=== PATIENT | male | born 1985 | race American Indian/Alaskan Native ===

== ENCOUNTER 2020-11-05 11:27 | Emergency (ER) | payer MEDICAID ==
[2020-11-05 14:58] LABS: Alanine Aminotransferase 122 units/L (7-56); Albumin 4.7 g/dL (3.9-5); Blood Urea Nitrogen 9 mg/dL (9-20); Calcium 9.5 mg/dL (8.4-10.2); Hemolysis Index 51
[2020-11-05 14:59] LABS: Basophils % (Auto) 0.2 % (0.0-1.8); Eosinophils # (Auto) 0.1 K/mm3 (0.0-0.4); Eosinophils % (Auto) 0.4 % (0.0-4.3); Hematocrit 39.6 % (35.5-45.6); Hemoglobin 13.7 gm/dl (11.8-15.2); Lymphocytes # (Auto) 1.6 K/mm3 (1.2-5.4); Lymphocytes % (Auto) 9.6 % (13.4-35.0); Mean Corpuscular HGB Conc 35 % (32-34); Mean Corpuscular Volume 85 fl (84-94); Monocytes # (Auto) 1.3 K/mm3 (0.0-0.8); Monocytes % (Auto) 7.9 % (0.0-7.3); Platelet Count 275 K/mm3 (140-440); Red Blood Count 4.69 M/mm3 (3.65-5.03); Red Cell Distribution Width 15.1 % (13.2-15.2)
[2020-11-05 15:04] LABS: BUN/Creatinine Ratio 23
--- NOTE | 2020-11-05 15:57 | Emergency Department Report ---
ED General Adult HPI - General Chief complaint: Extremity Problem,Nontraumatic Stated complaint: RIGHT SHOULDER PAIN PUI?: No Time Seen by Provider: 11/05/20 15:51 Source: patient, RN notes reviewed Mode of arrival: Ambulatory Limitations: No Limitations - History of Present Illness Initial comments: The patient is a pleasant 35-year-old gentleman. He is not known to myself previously. His hematology oncology nurse is Dr. Dorsey. 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 Surgical history significant for cholecys tectomy, splenectomy, as well as appendectomy. The patient presents to the ER today with a complaint of nontraumatic right sided posterior shoulder pain. It has been present since , today is Thursday. The pain is throbbing, increases with palpation and range of motion. It decreases with rest. Patient reports that he started to have bilateral knee pain last week, which felt similar to his prior sickle cell pain. He then experienced an ascending sensation of muscle cramping, and ultimately, developed right posterior shoulder pain. The pain is worsened with heavy lifting. The patient reports heavy lifting with his young daughter. The patient denies headache, neck pain, chest pain, abdominal pain, shortness of breath, IV drug use, extremity weakness or numbness. He denies fevers and chills. He denies loss of taste and smell. He has taken his home medication, as well as IcyHot, which he believes has somewhat, but not completely improved his symptomatology. He does not feel like this pain feels similar to his prior episodes of sickle cell crisis and pain. He has not received his COVID-19 vaccination. He denies Covid symptomatology. -: Gradual, days(s) Location: right, upper extremity Radiation: non-radiation Quality: aching Consistency: intermittent Improves with: rest Worsens with: movement - Related Data Allergies Allergy/AdvReac Type Severity Reaction Status Date / Time No Known Allergies Allergy Unverified 11/05/20 13:28 ED Review of Systems ROS: Stated complaint: RIGHT SHOULDER PAIN Other details as noted in HPI Comment: All other systems reviewed and negative Musculoskeletal: arthralgia, myalgia ED Past Medical Hx - Past Medical History Previous Medical History?: Yes Hx Sickle Cell Disease: Yes - Surgical History Past Surgical History?: No ED Physical Exam - General Limitations: No Limitations General appearance: alert, in no apparent distress - Head Head exam: Present: atraumatic, normocephalic - Eye Eye exam: Present: normal appearance, EOMI. Absent: scleral icterus, nystagmus - ENT ENT exam: Present: normal exam, normal orophraynx, mucous membranes moist, normal external ear exam - Neck Neck exam: Present: normal inspection, full ROM. Absent: tenderness, meningismus - Respiratory Respiratory exam: Present: normal lung sounds bilaterally. Absent: respiratory distress, wheezes, rales, rhonchi, stridor, decreased breath sounds - Cardiovascular Cardiovascular Exam: Present: regular rate, normal rhythm, normal heart sounds. Absent: bradycardia, tachycardia, irregular rhythm, systolic murmur, diastolic murmur, rubs, gallop - GI/Abdominal GI/Abdominal exam: Present: soft. Absent: distended, tenderness, guarding, rebound, rigid, pulsatile mass - Rectal Rectal exam: Present: deferred - Extremities Exam Extremities exam: Present: normal inspection, full ROM, tenderness (There is reproducible point tenderness, on the right posterior shoulder.), other (2+ pulses noted in the bilateral upper and lower extremities. There is no palpable cord. negative Homans sign. Muscular compartments are soft. The pelvis is stable.). Absent: pedal edema, calf tenderness - Back Exam Back exam: Present: normal inspection, full ROM (There is full active and passive range of motion in the right shoulder. There is no redness, pus, streaking, or obvious shoulder effusion). Absent: tenderness, CVA tenderness (R), CVA tenderness (L), paraspinal tenderness, vertebral tenderness - Neurological Exam Neurological exam: Present: alert, oriented X3, normal gait, other (No facial droop. Tongue midline. Extraocular movements intact bilaterally. Facial sensation intact to light touch in V1, V2, V3 distribution bilaterally. 5 and a 5 strength in 4 extremities. Sensation intact to light touch in 4 extremities.). Absent: motor sensory deficit - Psychiatric Psychiatric exam: Present: normal affect, normal mood - Skin Skin exam: Present: warm, dry, intact, normal color. Absent: rash ED Course Vital Signs 11/05/20 11/05/20 13:28 17:15 Temperature 98.0 F 98.1 F Pulse Rate 62 64 Respiratory 18 17 Rate Blood Pressure 125/80 123/79 [Right] O2 Sat by Pulse 100 99 Oximetry - Reevaluation(s) Reevaluation #1: 11/05/20 15:57 ga senior counsel commercial aware Patient ReportRefine Search Report Prepared: 11/05/2020 Date Range: 11/06/2019 11/05/2020 Download PDF Download CSV cameron carrero Summary Summary Total Prescriptions 23 Total Private Pay 0 Total Prescribers 2 Total Pharmacies 2 Opioids* (excluding buprenorphine) Current Qty 288.0 Current MME/day 360.0 30 Day Avg MME/day 372.0 Buprenorphine* Current Qty 0.0 Current mg/day 0.0 30 Day Avg mg/day 0.0 Prescriptions Filled ID Written Drug QTY Days Prescriber Rx # Pharmacy * Refills Daily Dose Pymt Type [employer] 10/31/2020 2 09/20/2020 OXYCODONE HCL 20 MG TABLET 180.0 30 DO COL [id number] [facility] ([id number]) 0 180.0 [place] 10/31/2020 2 09/20/2020 METHADONE HCL 10 MG TABLET 180.0 30 DO COL [id number] [facility] ([id number]) 0 180.[place] 10/02/2020 2 08/16/2020 METHADONE HCL 10 MG TABLET 180.0 30 DO COL [id number] [facility] ([id number]) 0 180.[place] 10/02/2020 2 08/16/2020 OXYCODONE HCL 20 MG TABLET 180.0 30 DO COL [id number] [facility] ([id number]) 0 180.[place] 08/30/2020 2 08/23/2020 METHADONE HCL 10 MG TABLET 180.0 30 DO COL [id number] [facility] ([id number]) 0 [place] 08/30/2020 2 08/23/2020 OXYCODONE HCL 20 MG TABLET 180.0 30 DO COL [id number] [facility] ([id number]) 0 180.[place] 08/01/2020 1 07/19/2020 METHADONE HCL 10 MG TABLET 180.0 30 DO COL [id number] [facility] ([id number]) 0 180.[place] 07/30/2020 2 07/19/2020 OXYCODONE HCL 20 MG TABLET 180.0 30 DO COL [id number] [facility] ([id number]) 0 180.[place] 07/03/2020 2 06/21/2020 METHADONE HCL 10 MG TABLET 180.0 30 DO COL [id number] [facility] ([id number]) 0 180.[place] 06/28/2020 2 06/21/2020 OXYCODONE-ACETAMINOPHEN 10-325 180.0 30 DO COL [id number] [facility] ([id number]) 0 90.0 [place] 06/04/2020 2 05/24/2020 METHADONE HCL 10 MG TABLET 180.0 30 DO COL [id number] [facility] ([id number]) 0 180.[place] 05/31/2020 2 05/24/2020 OXYCODONE-ACETAMINOPHEN 10-325 180.0 30 DO COL [id number] [facility] ([id number]) 0 90.[place] 05/03/2020 2 04/24/2020 OXYCODONE-ACETAMINOPHEN 10-325 180.0 30 DO COL [id number] [facility] ([id number]) 0 90.[place] 05/03/2020 2 04/24/2020 METHADONE HCL 10 MG TABLET 180.0 30 DO COL [id number] [facility] ([id number]) 0 180.0 [place] 04/02/2020 2 03/22/2020 OXYCODONE-ACETAMINOPHEN 10-325 180.0 30 DO COL [id number] [facility] ([id number]) 0 90.0 [place] 04/02/2020 2 03/22/2020 METHADONE HCL 10 MG TABLET 180.0 30 DO COL [id number] [facility] ([id number]) 0 180.0 [place] 03/02/2020 2 02/09/2020 OXYCODONE-ACETAMINOPHEN 10-325 180.0 30 DO COL [id number] [facility] ([id number]) 0 90.0 [place] 03/02/2020 2 02/09/2020 METHADONE HCL 10 MG TABLET 180.0 30 DO COL [id number] [facility] ([id number]) 0 180.0 [place] 01/02/2020 2 12/15/2019 OXYCODONE-ACETAMINOPHEN 10-325 180.0 30 DO COL [id number] [facility] ([id number]) 0 90.0 [place] 01/02/2020 2 12/15/2019 METHADONE HCL 10 MG TABLET 180.0 30 DO COL [id number] [facility] ([id number]) 0 180.0 [place] 12/13/2019 3 12/13/2019 ACETAMINOPHEN-COD #3 TABLET 12.0 2 DO CAM [id number] SHAYLEE ([id number]) 0 27.0 [place] 12/02/2019 2 11/15/2019 OXYCODONE-ACETAMINOPHEN 10-325 180.0 30 DO COL [id number] [facility] ([id number]) 0 90.0 [place] 12/02/2019 2 11/15/2019 METHADONE HCL 10 MG TABLET 180.0 30 DO COL [id number] [facility] ([id number]) 0 180.0 [place] *Pharmacy is created using a combination of pharmacy name and the last four digits of the pharmacy license number. *Per CDC guidance, the MME conversion factors prescribed or provided as part of medication-assisted treatment for opioid use disorder should not be used to benchmark against dosage thresholds meant for opioids prescribed for pain. Buprenorphine products have no agreed upon morphine equivalency, and as partial opioid agonists, are not expected to be associated with overdose risk in the same dose-dependent manner as doses for full agonist opioids. MME = morphine milligram equivalents. mg = dose in milligrams. Prescribers Name Address [facility] Zip Phone BEBE CAI, YAJAIRA [address] [facility] [address] RENETTA DORSEY MD [address] [facility] [place] [address] [facility] Zip Phone [facility] [phone] [address] [facility] [phone] [facility] [address] Reevaluation #2: 11/05/20 16:15 Differential diagnosis, including but not limited to: Avascular necrosis, bursitis, strain, strain, atypical presentation of pneumonia, sickle cell crisis and pain Assessment and plan: 35-year-old gentleman, who was afebrile, with reassuring vital signs, with reproducible right posterior muscular shoulder tenderness, in the context of heavy lifting. He has no redness, pus or streaking, and right shoulder has complete active and passive range of motion. His examination and history are not suggestive of septic joint at this time. He has no abdominal pain or tenderness. He is status post cholecystectomy. Transaminitis likely secondary to underlying history of sickle cell. Patient may have a superimposed partial component of sickle cell pain and crisis. We will treat his symptoms, patient declines IV, obtain x-ray the chest, and x- ray of the right shoulder. Reassess after initial data points. Please note that laboratory studies were ordered prior to my personal evaluation of this patient. Do not suspect acute infectious process at this time. He does not appear to be in significant distress at this time. Leukocytosis is likely a stress reaction. Elevated bilirubin likely secondary to underlying chronic sickle cell. Transaminitis likely secondary to chronic sickle cell. 11/05/20 16:18 11/05/20 17:24 X-rays negative for acute findings. Range of motion remains fully intact. P atient endorses improvement after symptomatic and supportive therapy. On his final reevaluation, he is noted to be eating fast food, and playing on his cellular phone, and he does not appear to be in any acute distress. ED Medical Decision Making - Lab Data Result diagrams: 11/05/20 14:08 11/05/20 14:08 Vital Signs 11/05/20 13:28 Temperature 98.0 F Pulse Rate 62 Respiratory 18 Rate Blood Pressure 125/80 [Right] O2 Sat by Pulse 100 Oximetry Lab Results 11/05/20 11/05/20 Range/Units 14:08 14:08 WBC 16.5 H (4.5-11.0) K/mm3 RBC 4.69 (3.65-5.03) M/mm3 Hgb 13.7 (11.8-15.2) gm/dl Hct 39.6 (35.5-45.6) % MCV 85 (84-94) fl MCH 29 (28-32) pg MCHC 35 H (32-34) % RDW 15.1 (13.2-15.2) % Plt Count 275 (140-440) K/mm3 Lymph % (Auto) 9.6 L (13.4-35.0) % Carbon % (Auto) 7.9 H (0.0-7.3) % Eos % (Auto) 0.4 (0.0-4.3) % Baso % (Auto) 0.2 (0.0-1.8) % Lymph # (Auto) 1.6 (1.2-5.4) K/mm3 Carbon # (Auto) 1.3 H (0.0-0.8) K/mm3 Eos # (Auto) 0.1 (0.0-0.4) K/mm3 Baso # (Auto) 0.0 (0.0-0.1) K/mm3 Seg Neutrophils % 81.9 H (40.0-70.0) % Seg Neutrophils # 13.5 H (1.8-7.7) K/mm3 Percent Retic 3.04 H (0.78-2.58) % Sodium 137 (137-145) mmol/L Potassium 4.3 (3.6-5.0) mmol/L Chloride 99.4 (98-107) mmol/L Carbon Dioxide 27 (22-30) mmol/L Anion Gap 15 mmol/L BUN 9 (9-20) mg/dL Creatinine 0.4 L (0.8-1.3) mg/dL Estimated GFR > 60 ml/min BUN/Creatinine Ratio 23 % Glucose 85 (75-100) mg/dL Calcium 9.5 (8.4-10.2) mg/dL Total Bilirubin 2.50 H (0.1-1.2) mg/dL AST 184 H (5-40) units/L ALT 122 H (7-56) units/L Alkaline Phosphatase 133 H (35-129) units/L Total Protein 7.6 (6.3-8.2) g/dL Albumin 4.7 (3.9-5) g/dL Albumin/Globulin Ratio 1.6 % - Radiology Data Radiology results: report reviewed, image reviewed [facility] [address] [place] [address] XRay Report Signed Patient: CAMERON CARRERO MR#: [id number] 47 : 1985 Acct:[id number] Age/Sex: 35 / M ADM Date: 11/05/20 Loc: ED Attending Dr: Ordering Physician: HECTOR IQBAL MD Date of Service: 11/05/20 Procedure(s): XR shoulder 2+V RT Accession Number(s): [id number] cc: HECTOR IQBAL MD Fluoro Time In Minutes: RIGHT SHOULDER 4 VIEWS INDICATION: right shoulder pain, xh of hbss. COMPARISON: No relevant prior imaging study available. FINDINGS: No acute skeletal abnormality. No humeral head osteonecrosis is seen. No significant degenerative changes. IMPRESSION: 1. No acute findings. CHEST PA AND LATERAL VIEWS INDICATION: right shoulder pain, xh of hbss. COMPARISON: None. FINDINGS: Support devices: None. Heart: Within normal limits. Lungs/Pleura: No acute pulmonary or pleural findings. IMPRESSION: 1. No acute findings. Signer Name: Aleksandr Zheng MD Signed: 11/05/2020 4:38 PM Workstation Name: [facility] Transcribed By: CAROLE Dictated By: Aleksandr Zheng MD Electronically Authenticated By: Aleksandr Zheng MD Signed Date/Time: 11/05/201637 DD/ 36 Critical care attestation.: If time is entered above; I have spent that time in minutes in the direct care of this critically ill patient, excluding procedure time. ED Disposition Clinical Impression: Right shoulder pain, History of sickle cell disease Disposition: TO HOME OR SELFCARE Is pt being admited?: No Does the pt Need Aspirin: No Condition: Good Instructions: Shoulder Pain Additional Instructions: Please continue current outpatient medications. Alternate ice packs and heat packs as needed to the right shoulder for physical pain. Patient may take Tylenol/acetaminophen, 650 mg by mouth, every 4-6 hours as needed for pain, alternating with ibuprofen, 400 mg by mouth, with food, every 6 hours as needed for pain. Please have your primary care doctor or hematology oncology doctor contact the medical records department to obtain copies of laboratory studies, and ER cong t/documentation, to follow-up on nonemergent incidental abnormal findings. Minimize/avoid consumption of alcohol, tobacco and smoke products, and avoid heavy lifting. Follow-up with your hematology oncology doctor or primary care doctor within the next 5 days for repeat checkup and evaluation. Please return to the emergency room right away with new pain, worsened pain, migration of pain, projectile vomiting, change in mental status, confusion, inability to tolerate liquid feeds, fevers, chills, or any new, worsened or different symptoms not present on the initial emergency room evaluation. Referrals: RENETTA DORSEY MD [Primary Care Provider] - 3-5 Days Forms: Work/School Release Form(ED)
[2020-11-05] MEDS ORDERED: oxyCODONE /ACETAMINOPHEN 5-325MG TAB PO ONE (16:09)
[2020-11-05] MEDS ORDERED: KETOROLAC 30 MG/1 ML INJ IM ONE (16:09)
--- NOTE | 2020-11-05 16:43 | XRay Report ---
RIGHT SHOULDER 4 VIEWS INDICATION: right shoulder pain, xh of hbss. COMPARISON: No relevant prior imaging study available. FINDINGS: No acute skeletal abnormality. No humeral head osteonecrosis is seen. No significant degenerative juliet nges. IMPRESSION: 1. No acute findings. CHEST PA AND LATERAL VIEWS INDICATION: right shoulder pain, xh of hbss. COMPARISON: None. FINDINGS: Support devices: None. Heart: Within normal limits. Lungs/Pleura: No acute pulmonary or pleural findings. IMPRESSION: 1. No acute findings. Signer Name: Aleksandr Zheng MD Signed: 11/05/2020 4:38 PM Workstation Name: [id number]
[2020-11-05 17:23] VITALS: BP 123/79
== END 2020-11-05 17:15 | disposition home or self-care (01) ==
LOC: ED 11:27
DX: M25.511 Pain in right shoulder (principal); Z86.2 Personal history of diseases of the blood and blood-forming organs and certain disorders involving the immune mechanism
CPT/HCPCS: 36415; 71046; 73030; 80053; 85025; 85045; 96372; 99283; J1885